=== PATIENT | male | born 1955 | race Caucasian/White ===

== ENCOUNTER 2017-04-11 17:57 | Inpatient (IN) | payer SELFPAY ==
[~2017-04-11] VITALS: Ht 160 cm; Wt 61.7 kg
[2017-04-11] MEDS ORDERED: ASPIRIN 81 MG TABLET CHEW PO ONE (18:30)
[2017-04-11 18:41] LABS: BLOOD UREA NITROGEN 19 mg/dL (7-18)
[2017-04-11] MEDS ORDERED: ASPIRIN 81 MG TABLET CHEW ONE (18:43)
[2017-04-11 18:58] LABS: IS PT STATUS REG ER OR PRE ER? YES
[2017-04-11] MEDS ORDERED: ONDANSETRON 2MG/ML, 2ML IVPush PRN (20:30)
[2017-04-11] MEDS ORDERED: BISACODYL 10 MG SUPP PR PRN (20:30)
[2017-04-11] MEDS ORDERED: ZOLPIDEM 5MG TABLET PO PRN (20:30)
[2017-04-11] MEDS ORDERED: POLYETHYLENE GLYCOL 17 GM PACKET PO PRN (20:30)
[2017-04-11] MEDS ORDERED: NITROGLYCERIN 0.4 MG BOTTLE (25 TABS) SL PRN (20:30)
[2017-04-11] MEDS ORDERED: DOCUSATE 100 MG CAPSULE PO PRN (20:30)
[2017-04-11] MEDS ORDERED: OMEPRAZOLE 20 MG CAPSULE.DR PO ONE (20:30)
[2017-04-11] MEDS ORDERED: OMNIPAQUE 350 MG/ML, 100ML BOTTLE ONE (22:00)
[2017-04-11] MEDS: POTASSIUM CHLORIDE 20 MEQ, MAGNESIUM SULFATE 1 GM, MVI ADULT 10 ML, THIAMINE 100 MG, FO... IV SCH (22:38)
[2017-04-11] MEDS: SUCRALFATE 1 GM/10 ML UDC PO SCH (22:39)
[2017-04-11] MEDS: METOPROLOL TARTRATE 25 MG TABLET PO SCH (22:39)
[2017-04-11] MEDS: ENOXAPARIN 40 MG/0.4 ML SQ SCH (22:40)
[2017-04-12] MEDS: POTASSIUM CHLORIDE 20 MEQ, MAGNESIUM SULFATE 1 GM, MVI ADULT 10 ML, THIAMINE 100 MG, FO... IV SCH
[2017-04-12 01:15] VITALS: BP 157/91
[2017-04-12] MEDS: ACETAMINOPHEN 325 MG TABLET PO PRN ×2 (01:39→22:08)
[2017-04-12 03:44] LABS: RAPID INFLUENZA A Negative (Negative); RAPID INFLUENZA B Negative (Negative)
[2017-04-12 06:07] LABS: ASPARTATE AMINO TRANSFERASE 31 U/L (15-37); BLOOD UREA NITROGEN 18 mg/dL (7-18)
[2017-04-12] MEDS: METOPROLOL TARTRATE 25 MG TABLET PO SCH ×2 (06:14→17:11)
[2017-04-12] MEDS: ASPIRIN 325 MG TABLET EC PO SCH (06:14)
[2017-04-12] MEDS: SUCRALFATE 1 GM/10 ML UDC PO SCH ×4 (07:00→22:08)
[2017-04-12 07:16] VITALS: BP 138/90
[2017-04-12] MEDS ORDERED: REGADENOSON 0.4 MG/5 ML SYRINGE ONE (07:50)
[2017-04-12 08:06] LABS: DAU SCREEN DISCLAIMER
[2017-04-12 08:31] LABS: IS PT STATUS REG ER OR PRE ER? NO
[2017-04-12] MEDS: OMEPRAZOLE 20 MG CAPSULE.DR PO SCH (12:04)
[2017-04-12 12:11] LABS: HEPATITIS C VIRUS ANTIBODY Reactive (Nonreactive)
[2017-04-12] MEDS ORDERED: LOSA25TA5 PO (12:50)
[2017-04-12] MEDS ORDERED: VANCOMYCIN PER PHARMACY MC PRN (13:00)
[2017-04-12] MEDS: PIPERACILLIN/TAZO/PMX 3.375GM 50 ML IV SCH ×2 (13:58→22:08)
[2017-04-12 16:07] VITALS: BP 129/77
[2017-04-12 17:12] VITALS: BP 147/97
[2017-04-12 20:47] VITALS: BP 145/87
[2017-04-12] MEDS: ENOXAPARIN 40 MG/0.4 ML SQ SCH (22:08)
[2017-04-13] MEDS: POTASSIUM CHLORIDE 20 MEQ, MAGNESIUM SULFATE 1 GM, MVI ADULT 10 ML, THIAMINE 100 MG, FO... IV SCH
[2017-04-13] MEDS: PIPERACILLIN/TAZO/PMX 3.375GM 50 ML IV SCH ×4 (01:30→23:07)
[2017-04-13 02:00] VITALS: BP 159/95
[2017-04-13] MEDS: METOPROLOL TARTRATE 25 MG TABLET PO SCH ×2 (06:13→18:38)
[2017-04-13] MEDS: ASPIRIN 325 MG TABLET EC PO SCH (06:14)
[2017-04-13] MEDS: SUCRALFATE 1 GM/10 ML UDC PO SCH ×4 (06:14→20:43)
[2017-04-13 06:15] LABS: BLOOD UREA NITROGEN 18 mg/dL (7-18)
[2017-04-13 07:22] VITALS: BP 150/90
[2017-04-13] MEDS: OMEPRAZOLE 20 MG CAPSULE.DR PO SCH (10:30)
[2017-04-13] MEDS: ACETAMINOPHEN 325 MG TABLET PO PRN (10:36)
[2017-04-13 12:59] VITALS: BP 127/75
[2017-04-13] MEDS: LORazepam 2 MG/ML, 1ML IVPush PRN ×2 (16:03→23:07)
[2017-04-13 20:00] VITALS: BP 123/75
[2017-04-13] MEDS: ENOXAPARIN 40 MG/0.4 ML SQ SCH (20:30)
[2017-04-14] MEDS: POTASSIUM CHLORIDE 20 MEQ, MAGNESIUM SULFATE 1 GM, MVI ADULT 10 ML, THIAMINE 100 MG, FO... IV SCH (00:32)
[2017-04-14 02:00] VITALS: BP 148/88
[2017-04-14] MEDS: PIPERACILLIN/TAZO/PMX 3.375GM 50 ML IV SCH ×4 (04:11→22:55)
[2017-04-14] MEDS: METOPROLOL TARTRATE 25 MG TABLET PO SCH ×2 (05:32→17:33)
[2017-04-14] MEDS: ASPIRIN 325 MG TABLET EC PO SCH (05:32)
[2017-04-14] MEDS: SUCRALFATE 1 GM/10 ML UDC PO SCH ×4 (05:32→21:05)
[2017-04-14] MEDS: LORazepam 2 MG/ML, 1ML IVPush PRN ×3 (05:35→21:06)
[2017-04-14 08:00] VITALS: BP 144/99
[2017-04-14] MEDS: OMEPRAZOLE 20 MG CAPSULE.DR PO SCH (08:14)
[2017-04-14] MEDS: FOLIC ACID 1 MG TABLET PO SCH (09:30)
[2017-04-14] MEDS: MULTIVITAMIN 1 TABLET PO SCH (09:30)
[2017-04-14] MEDS: THIAMINE 100MG TABLET PO SCH (09:30)
[2017-04-14 13:59] VITALS: BP 121/81
[2017-04-14 20:42] VITALS: BP 138/85
[2017-04-14] MEDS: ENOXAPARIN 40 MG/0.4 ML SQ SCH (21:05)
[2017-04-15 01:22] VITALS: BP 123/81
[2017-04-15] MEDS: LORazepam 2 MG/ML, 1ML IVPush PRN ×2 (01:34→21:30)
[2017-04-15] MEDS: PIPERACILLIN/TAZO/PMX 3.375GM 50 ML IV SCH ×4 (04:56→23:16)
[2017-04-15] MEDS: ASPIRIN 325 MG TABLET EC PO SCH (05:40)
[2017-04-15] MEDS: SUCRALFATE 1 GM/10 ML UDC PO SCH ×4 (05:40→21:30)
[2017-04-15] MEDS: METOPROLOL TARTRATE 25 MG TABLET PO SCH ×2 (05:40→16:34)
[2017-04-15 06:35] VITALS: BP 132/75
[2017-04-15] MEDS: OMEPRAZOLE 20 MG CAPSULE.DR PO SCH (08:04)
[2017-04-15] MEDS: MULTIVITAMIN 1 TABLET PO SCH (09:44)
[2017-04-15] MEDS: FOLIC ACID 1 MG TABLET PO SCH (09:44)
[2017-04-15] MEDS: THIAMINE 100MG TABLET PO SCH (09:44)
[2017-04-15] MEDS: OXYcodone IR 5MG TABLET PO PRN ×3 (11:14→21:29)
[2017-04-15 14:13] VITALS: BP 123/79
[2017-04-15 18:18] VITALS: BP 129/76
[2017-04-15] MEDS: ENOXAPARIN 40 MG/0.4 ML SQ SCH (21:29)
[2017-04-16 02:00] VITALS: BP 113/73
[2017-04-16] MEDS: OXYcodone IR 5MG TABLET PO PRN ×3 (03:16→16:55)
[2017-04-16] MEDS: PIPERACILLIN/TAZO/PMX 3.375GM 50 ML IV SCH ×4 (04:37→23:21)
[2017-04-16] MEDS: METOPROLOL TARTRATE 25 MG TABLET PO SCH ×2 (05:28→16:56)
[2017-04-16] MEDS: ASPIRIN 325 MG TABLET EC PO SCH (05:28)
[2017-04-16 07:02] VITALS: BP 117/76
[2017-04-16] MEDS: OMEPRAZOLE 20 MG CAPSULE.DR PO SCH (07:38)
[2017-04-16] MEDS: SUCRALFATE 1 GM/10 ML UDC PO SCH ×4 (07:38→21:40)
[2017-04-16] MEDS: MULTIVITAMIN 1 TABLET PO SCH (08:18)
[2017-04-16] MEDS: FOLIC ACID 1 MG TABLET PO SCH (08:18)
[2017-04-16] MEDS: THIAMINE 100MG TABLET PO SCH (08:18)
[2017-04-16] MEDS ORDERED: MORPHINE SULFATE 4 MG/ML, 1ML ONE (09:24)
[2017-04-16] MEDS: morphine SULFATE 10 MG/ML, 1ML IVPush PRN ×2 (09:26→21:41)
[2017-04-16 12:23] VITALS: BP 119/73
[2017-04-16 20:05] VITALS: BP 102/63
[2017-04-16] MEDS: ENOXAPARIN 40 MG/0.4 ML SQ SCH (21:40)
[2017-04-17 02:00] VITALS: BP 100/71
[2017-04-17] MEDS: morphine SULFATE 10 MG/ML, 1ML IVPush PRN ×2 (02:59→06:45)
[2017-04-17] MEDS: PIPERACILLIN/TAZO/PMX 3.375GM 50 ML IV SCH ×2 (05:39→11:26)
[2017-04-17] MEDS: ASPIRIN 325 MG TABLET EC PO SCH (05:39)
[2017-04-17] MEDS: METOPROLOL TARTRATE 25 MG TABLET PO SCH (05:39)
[2017-04-17 06:35] VITALS: BP 106/64
[2017-04-17] MEDS: FOLIC ACID 1 MG TABLET PO SCH (07:57)
[2017-04-17] MEDS: MULTIVITAMIN 1 TABLET PO SCH (07:57)
[2017-04-17] MEDS: OMEPRAZOLE 20 MG CAPSULE.DR PO SCH (07:57)
[2017-04-17] MEDS: THIAMINE 100MG TABLET PO SCH (07:57)
[2017-04-17] MEDS: OXYcodone IR 5MG TABLET PO PRN (07:57)
[2017-04-17] MEDS: SUCRALFATE 1 GM/10 ML UDC PO SCH ×2 (07:59→11:25)
[2017-04-17] MEDS ORDERED: OMNIPAQUE 350 MG/ML, 100ML BOTTLE ONE (10:44)
[2017-04-17] MEDS ORDERED: AMOXICILLIN/CLAV 875-125MG TABLET PO SCH (11:30)
[2017-04-17] MEDS ORDERED: LACTOBACILLUS CHEW TABLET PO SCH (11:30)
[2017-04-17] MEDS ORDERED: MULT1TAB60 PO (11:46)
[2017-04-17] MEDS ORDERED: AMOX1TAB12 PO (11:46)
[2017-04-17] MEDS ORDERED: FOLI-17 PO (11:46)
[2017-04-17] MEDS ORDERED: METO25TA35 PO (11:46)
[2017-04-17] MEDS ORDERED: ACID1TAB7 PO (11:46)
[2017-04-17] MEDS ORDERED: THIA100T6 PO (11:46)
== END 2017-04-17 14:20 | disposition home or self-care (01) | DRG 313 ==
LOC: ED 19:17 → EDIP 19:38 → 5SO 21:21 → 4EST 04-12 20:46
DX: R07.2 Precordial pain (principal); E43 Unspecified severe protein-calorie malnutrition; E87.1 Hypo-osmolality and hyponatremia; I11.9 Hypertensive heart disease without heart failure; D53.9 Nutritional anemia, unspecified; F12.90 Cannabis use, unspecified, uncomplicated; G89.29 Other chronic pain; D72.829 Elevated white blood cell count, unspecified; R73.03 Prediabetes; M19.90 Unspecified osteoarthritis, unspecified site; Z87.891 Personal history of nicotine dependence; Z68.24 Body mass index [BMI] 24.0-24.9, adult
CPT/HCPCS: 36415; 71020; 71275; 74175; 74177; 74220; 78452; 80048; 80053; 80061; 80074; 80307; 81003; 82040; 82607; 82746; 83605; 83735; 83880; 84100; 84439; 84443; 84484; 85025; 86677; 87040; 87077; 87186; 87400; 87521; 93005; 93017; 93306; 99285; J1650; J2405; J2543; J2785; J3411; J3475; J3480; Q9967; A9502; C9898; J2060; J2270

== ENCOUNTER 2021-05-26 14:16 | Outpatient (CLI) | payer MEDICARE ==
[~2021-05-26 14:16] MED LIST: ACID1TAB7 PO; AMOX1TAB12 PO; FOLI1TAB32 PO; LOSA25TA25 PO; METO25TA35 PO; MULT-449 PO; THIA100T67 PO
== END 2021-05-26 23:59 | disposition home or self-care (01) ==
LOC: RAD 14:16
PROVIDERS: ATTEND Nurse Practitioner Family
DX: K74.69 Other cirrhosis of liver (principal)
CPT/HCPCS: 76705